=== PATIENT | female | born 1985 | race Two or more races ===

== ENCOUNTER → 2025-02-21 | Outpatient (CLI) | payer MEDICAID, SELFPAY ==
--- NOTE | 2025-02-21 13:00 | XR_ITS ---
Examination: MRI lumbar spine without contrast Date and time of exam: February 21, 2025 1402 hours INDICATIONS: Low back pain with paresthesias 1 month after falling with injury to lower back Technique: Multiple MRI axial and sagittal sections lumbar spine. Sagittal T2-weighted images, TR 3500, TE 118 T1 weighted transverse sections, TR 688 T8.5, T2-weighted sagittal sections T1 weighted sagittal sections TR 621, TE 30 T2 axial sections, TR 4, 190, TE 84. Findings: Adequate alignment lumbar vertebral bodies on the lateral view No lumbar fracture Disc desiccation L5-S1 Mild disc narrowing L5-S1 No spondylolisthesis L5-S1 7 mm central lumbar disc bulge contiguous with the right and left S1 nerve roots L4-L5 2 mm central lumbar disc bulge More cephalad levels unremarkable IMPRESSION: No lumbar fracture L5-S1 7 mm central lumbar disc bulge contiguous with the right and left S1 nerve roots
== END | disposition home or self-care (01) ==
PROVIDERS: PCP Specialist; Referring Provider Specialist; Visit Provider Specialist
DX: M51.370 Other intervertebral disc degeneration, lumbosacral region with discogenic back pain only (principal); S39.92XA Unspecified injury of lower back, initial encounter; W19.XXXA Unspecified fall, initial encounter
CPT/HCPCS: 72148

== ENCOUNTER 2025-04-08 11:30 | Outpatient (RCR) | payer MEDICAID, SELFPAY ==
--- NOTE | 2025-03-25 18:30 | PTNOTE_ITS ---
PT OP Initial Eval Patient Information Outpatient Physical Therapy Treatment Date: 03/25/25 Visit Reasons: scoliosis Medical Diagnosis: M41.80 Treatment Dx #1: back pain Treatment Dx #2: LBP Start of Care: 03/25/25 Smoking Status Smoking Status: Never smoker Initial Assessment Subjective: Pt is 39 yr old female who reports LBP since slipping on water and falling onto her backside on the floor at [employer]. Since then she has more pain with bending, lifting and prolonged sitting. She points to the lumbar spine as site of most pain and occasionally the mid back. PMH: x2 Imaging: MRI of L/S L5-S1 7 mm central lumbar disc bulge contiguous with the right and left S1 nerve roots, L4-L5 2 mm central lumbar disc bulge Pt goal: to get rid of the pain and improve quality of life Objective: ?Trunk ArOM: ? B SB 50% of normal ? Extension: 30% with pain around L4-5, L5-S1 ? Flexion: 14 from floor with LBP ? B rotation: 70% ? TTP: moderate paraspinals L4-S1 ? Neuro: B SLR: negative Observation: unable to notice scoliotic curve Assessment: Pt presents with trunk flexion sensitivity and overlying myofascial pain ? and TTP around L4-S1 consistent with MRI results that reveal lower lumbar disc bulge(s) with radiculopathy. Pt requires skilled therapy in order to decrease ? pain and improve sitting/standing tolerance and has fair rehab potential. Eval ?followed by HEP printout. The mid-back pain wasn't provoked today during the eval. Short Term and Group Home Goals 1. Ind with HEP ? 2. Improved sitting/standing tolerance to 3 hours with <=4/10 LBP ? 3. Decreased lower paraspinal TTP from mod to min 4. Improved HH chore tolerance to at least 60 minutes with <=3/10 LBP and no ?increase in LE ssx Treatment Plan 1. Manual therapy ? 2. Therex ? 3. Modalities as indicated, moist heat, ice, estim, mechanical traction Frequency and Duration: 2x a week for 12 visits plus the evaluation. We will need provider's signature on this evaluation to continue past 6 Rx sessions or another referral since provider requested 6. Certification Dates: 03/25/25 to 06/23/25 Procedure Charges OP PT Eval Mod Complex 30 minutes: Yes
--- NOTE | 2025-03-31 11:26 | PT.ODAYNRPT ---
PT Outpatient Daily Note OP Daily Note Outpatient Physical Therapy Treatment Date: 03/31/25 Visit Reasons: scoliosis Subjective: Same as time of eval. Doing HEP of prone extension with low pressure increase and slight pain in R glute Objective: See F/S for therex Mechanical traction L/S x7' at 40 lbs Assessment: Good demo of prone extension therex Plan: Continue per POC once we receive more authorized visits with the correct [id number] therex code Length of Time (minutes) of Treatment: 30 Minutes Procedure Charges Therapeutic Exercise 30 minutes: Yes
--- NOTE | 2025-04-03 18:03 | PT.ODAYNRPT ---
PT Outpatient Daily Note OP Daily Note Outpatient Physical Therapy Treatment Date: 04/03/25 Visit Reasons: scoliosis Subjective: Doing HEP of prone extension with low pressure increase and slight pain in R glute Objective: See F/S for therex Mechanical traction L/S x7' at 40 lbs Assessment: Good demo of prone extension therex Plan: Continue per POC Procedure Charges Therapeutic Exercise 30 minutes: Yes
--- NOTE | 2025-04-08 13:53 | PT.ODAYNRPT ---
PT Outpatient Daily Note OP Daily Note Outpatient Physical Therapy Treatment Date: 04/08/25 Visit Reasons: scoliosis Subjective: Doing HEP of prone extension with low pressure increase and slight pain in R glute. No LBP today. Objective: See F/S for therex Mechanical traction L/S x7' at 40 lbs Assessment: Good demo of prone extension therex and core activation therex with no LBP Plan: Continue per POC Procedure Charges Therapeutic Exercise 30 minutes: Yes
== END 2025-04-19 23:59 | disposition home or self-care (01) ==
LOC: CPTX 11:30
PROVIDERS: PCP Specialist; Referring Provider Specialist; Visit Provider Specialist
DX: M54.50 Low back pain, unspecified (principal); M41.80 Other forms of scoliosis, site unspecified
CPT/HCPCS: 97110; 97162

== ENCOUNTER 2025-05-14 15:00 | Outpatient (RCR) | payer MEDICAID, SELFPAY ==
--- NOTE | 2025-04-21 18:16 | PT.ODAYNRPT ---
PT Outpatient Daily Note OP Daily Note Outpatient Physical Therapy Treatment Date: 04/21/25 Visit Reasons: Scoliosis Subjective: Doing HEP of prone extension with low pressure increase and slight pain in R glute. Objective: See F/S for therex Mechanical traction L/S x7' at 40 lbs Assessment: Good demo of prone extension therex and core activation therex with no LBP Plan: Continue per POC Length of Time (minutes) of Treatment: 30 Minutes Procedure Charges Therapeutic Exercise 30 minutes: Yes
--- NOTE | 2025-04-28 16:39 | PT.ODAYNRPT ---
PT Outpatient Daily Note OP Daily Note Outpatient Physical Therapy Treatment Date: 04/28/25 Visit Reasons: Scoliosis Subjective: Doing HEP of prone extension with low pressure increase and slight pain in R glute. Objective: See F/S for therex Mechanical traction L/S x7' at 40 lbs Assessment: Good demo of prone extension therex and core activation therex with no LBP Plan: Continue per POC Length of Time (minutes) of Treatment: 30 Minutes Procedure Charges Therapeutic Exercise 30 minutes: Yes
--- NOTE | 2025-05-02 16:13 | PT.ODAYNRPT ---
PT Outpatient Daily Note OP Daily Note Outpatient Physical Therapy Treatment Date: 05/02/25 Visit Reasons: Scoliosis Subjective: Pt reports back is doing better, she is doing HEP and working out at home. Objective: Please see flow sheet for ther ex list. Assessment: Pt demonstrates good abdominal recruitment with exercises assigned. Plan: Continue with POC. Length of Time (minutes) of Treatment: 30 Minutes Procedure Charges Therapeutic Exercise 30 minutes: Yes
--- NOTE | 2025-05-05 09:45 | PT.ODAYNRPT ---
PT Outpatient Daily Note OP Daily Note Outpatient Physical Therapy Treatment Date: 05/05/25 Visit Reasons: Scoliosis Subjective: Pt reports palacio has been feeling better these last few days. Objective: Please see flow sheet for ther ex list. Assessment: Pt instructed on planks off table height exercise, pt demonstrated good body mechanics maintaining spine in neutral. Plan: Continue with pOC. Length of Time (minutes) of Treatment: 30 Minutes Procedure Charges Therapeutic Exercise 30 minutes: Yes
--- NOTE | 2025-05-14 16:30 | PT.ODAYNRPT ---
PT Outpatient Daily Note OP Daily Note Outpatient Physical Therapy Treatment Date: 05/14/25 Visit Reasons: Scoliosis Subjective: Doing HEP of prone extension with low pressure increase and slight pain in R glute. Objective: See F/S for therex Mechanical traction L/S x7' at 40 lbs Assessment: Good demo of prone extension therex and core activation therex with no LBP Plan: Continue per POC Length of Time (minutes) of Treatment: 30 Minutes Procedure Charges Therapeutic Exercise 30 minutes: Yes
== END 2025-05-19 23:59 | disposition home or self-care (01) ==
LOC: CPTX 15:00
PROVIDERS: PCP Specialist; Referring Provider Specialist; Visit Provider Specialist
DX: M54.50 Low back pain, unspecified (principal); M41.80 Other forms of scoliosis, site unspecified
CPT/HCPCS: 97110

== ENCOUNTER 2025-06-10 11:30 | Outpatient (RCR) | payer MEDICAID, SELFPAY ==
--- NOTE | 2025-05-20 17:24 | PT.ODAYNRPT ---
PT Outpatient Daily Note OP Daily Note Outpatient Physical Therapy Treatment Date: 05/20/25 Visit Reasons: Scoliosis Subjective: Doing HEP of prone extension with low pressure increase and slight pain in R glute. Objective: See F/S for therex Mechanical traction L/S x7' at 40 lbs Assessment: Good demo of prone extension therex and core activation therex with no LBP Plan: Continue per POC Length of Time (minutes) of Treatment: 30 Minutes Procedure Charges Therapeutic Exercise 30 minutes: Yes
--- NOTE | 2025-05-28 16:53 | PT.ODAYNRPT ---
PT Outpatient Daily Note OP Daily Note Outpatient Physical Therapy Treatment Date: 05/28/25 Visit Reasons: Scoliosis Subjective: Doing HEP of prone extension with low pressure increase and slight pain in R glute. Objective: See F/S for therex Mechanical traction L/S x7' at 40 lbs Assessment: Good demo of prone extension therex and core activation therex with no LBP Plan: Continue per POC Length of Time (minutes) of Treatment: 30 Minutes Procedure Charges Therapeutic Exercise 30 minutes: Yes
--- NOTE | 2025-06-05 13:07 | PT.ODAYNRPT ---
PT Outpatient Daily Note OP Daily Note Outpatient Physical Therapy Treatment Date: 06/05/25 Visit Reasons: Scoliosis Subjective: Less LBP lately. She is watching her posture to avoid slouching and rounding her back Objective: See F/S for therex Assessment: Good abdominal activation with lumbar stabilization therex Plan: Continue per POC Length of Time (minutes) of Treatment: 30 Minutes Procedure Charges Therapeutic Exercise 30 minutes: Yes
--- NOTE | 2025-06-10 13:45 | PT.ODAYNRPT ---
PT Outpatient Daily Note OP Daily Note Outpatient Physical Therapy Treatment Date: 06/10/25 Visit Reasons: Scoliosis Subjective: Less LBP lately. She is watching her posture to avoid slouching and rounding her back Objective: See F/S for therex Assessment: Good abdominal activation with lumbar stabilization therex Plan: Continue per POC Length of Time (minutes) of Treatment: 30 Minutes Procedure Charges Therapeutic Exercise 30 minutes: Yes
== END 2025-06-19 23:59 | disposition home or self-care (01) ==
LOC: CPTX 11:30
PROVIDERS: PCP Specialist; Referring Provider Specialist; Visit Provider Specialist
DX: M54.50 Low back pain, unspecified (principal); M41.80 Other forms of scoliosis, site unspecified
CPT/HCPCS: 97110

== ENCOUNTER 2025-06-24 11:18 | Outpatient (RCR) | payer MEDICAID, SELFPAY ==
--- NOTE | 2025-06-24 12:52 | PT.ODS1RPT ---
PT OP Progress/Discharge Note Date of Service: 06/24/25 Progress Note/DC Note Progress Note/Discharge Note: DC Note Patient Information Visit Reasons: Scoliosis Service Continue Service or Discharge: Discharge Discharge Date: 06/24/25 Status Subjective: Overall less LBP, improved standing >3 hrs and sitting 2 hr tolerances Objective: Trunk AROM: FB: 12 from floor Extension: full TTP: min of lumbar paraspinals. Assessment: Pt has attended 10/31 visits with good progress with goals. Pt is independent with HEP which is helping manage the LBP to meet that goal. Pt has improved standing tolerance to meet that goal. Pt has decreased lower paraspinal TTP from mod to min. Plan: D/C with HEP Procedure Charges Therapeutic Exercise 30 minutes: Yes
== END 2025-07-20 23:59 | disposition home or self-care (01) ==
LOC: CPTX 11:18
PROVIDERS: PCP Specialist; Referring Provider Specialist; Visit Provider Specialist
DX: M54.50 Low back pain, unspecified (principal); M41.80 Other forms of scoliosis, site unspecified; S39.92XD Unspecified injury of lower back, subsequent encounter; W01.0XXD Fall on same level from slipping, tripping and stumbling without subsequent striking against object, subsequent encounter
CPT/HCPCS: 97110

== ENCOUNTER → 2025-09-19 | Outpatient (CLI) | payer MEDICAID, SELFPAY ==
--- NOTE | 2025-09-19 08:30 | XR_ITS ---
Examination: Screening digital mammography, bilateral Computer aided detection 3-D breast Tomosynthesis, bilateral Date and time of exam: September 19, 2025, 0909 hours, comparison November 16, 2023 Indication: Screening Technique: Nonmagnified MLO, CC views of the breasts to been obtained, reconstructed from 3-D Tomosynthesis images. R2 computer aided detection program utilized for evaluation of suspicious masses and/or abnormal calcifications. 3-D Tomosynthesis images obtained. Findings: The breast is heterogeneously dense, which may obscure small masses 19 mm nodule 12 o'clock position right breast fairly circumscribed Impression: BI-RADS Category 0: Incomplete: Need additional imaging evaluation Recommend follow-up spot tomographic views of 19 mm nodule 12 o'clock position right breast as well as bilateral breast sonography to complete the work-up
== END | disposition home or self-care (01) ==
LOC: CDIM 08:47
PROVIDERS: PCP Specialist; Referring Provider Physician Assistant Medical; Visit Provider Physician Assistant Medical
DX: Z12.31 Encounter for screening mammogram for malignant neoplasm of breast (principal); R92.8 Other abnormal and inconclusive findings on diagnostic imaging of breast; N63.15 Unspecified lump in the right breast, overlapping quadrants
CPT/HCPCS: 77063; 77067

== ENCOUNTER → 2025-10-03 | Outpatient (CLI) | payer MEDICAID, SELFPAY ==
--- NOTE | 2025-10-03 13:51 | XR_ITS ---
Examination: Diagnostic digital mammography, unilateral, right Computer aided detection 3-D breast Tomosynthesis, unilateral Date and time of exam: October 03, 2025, 1427 hours INDICATIONS: 19 mm nodule 12 o'clock position right breast on mammogram September 19, 2025 Technique: Nonmagnified MLO, CC views of the right breast have been obtained, reconstructed from 3-D Tomosynthesis images. R2 computer aided detection program utilized for evaluation of suspicious masses and/or abnormal calcifications. 3-D Tomosynthesis images obtained. Findings: The breast is heterogeneously dense, which may obscure small masses 12:00 nodule is confirmed on the spot compression views, please see the ultrasound report today indicating 12:00 nodule right breast suspicious margins Impression: BI-RADS category 4: Suspicious for malignancy Suspicious nodule 12 o'clock position right breast, best depicted on the ultrasound examination today, biopsy is needed to exclude breast carcinoma the mass is amenable to ultrasound-guided breast biopsy for diagnosis
--- NOTE | 2025-10-03 13:51 | XR_ITS ---
Examination: Breast ultrasound complete, bilateral Date and time of exam: October 03, 2025, 1409 hours INDICATIONS: Mammogram September 19, 2000 2519 mm nodule 12 o'clock position right breast Technique: Real-time grayscale ultrasonographic imaging bilateral breasts, including all 4 quadrants as well as nipple retroareolar and axillary regions. Findings: Sonographic images right breast 12:00 nodule partially indistinct 16 x 17 mm 1:00 cyst 8 x 7 mm 10:00 nodule lobular margins 7 x 7 mm Sonographic images left breast 3:00 nodule circumscribed 4 x 5 mm 6:00 cyst 6 x 5 mm 10:00 cyst 6 x 5 mm IMPRESSION: BI-RADS Category 4: Suspicious for malignancy Suspicious mass 12 o'clock position right breast, biopsy is needed to exclude breast carcinoma, this mass is amenable to ultrasound-guided breast biopsy for diagnosis
== END | disposition home or self-care (01) ==
PROVIDERS: PCP Specialist; Referring Provider Specialist; Visit Provider Specialist
DX: R92.341 Mammographic extreme density, right breast (principal); N63.15 Unspecified lump in the right breast, overlapping quadrants; R92.0 Mammographic microcalcification found on diagnostic imaging of breast
CPT/HCPCS: 76641; 77061; 77065; G0279

== ENCOUNTER → 2025-11-10 | Outpatient (CLI) | payer MEDICAID, SELFPAY ==
[2025-11-07 10:10] LABS: Basophils # (Auto) 0.0 Thou/mm3 (0.0-0.2); Basophils % (Auto) 0 % (0-2.5); Eosinophils # (Auto) 0.0 Thou/mm3 (0.0-0.5); Eosinophils % (Auto) 1 % (0-10); Hematocrit 37.8 % (36.0-46.0); Hemoglobin 13.1 g/dL (12.0-16.0); Immature Granulocytes Auto 0.01 Thou/mm3 (0.00-0.00); Lymphocytes # (Auto) 1.8 Thou/mm3 (1.0-4.8); Lymphocytes % (Auto) 40 % (10-50); Mean Corpuscular HGB Conc 34.7 g/dl (31.0-37.0); Mean Corpuscular Hemoglobin 29.9 pg (25.0-35.0); Mean Corpuscular Volume 86 fL (80-100); Monocytes # (Auto) 0.3 Thou/mm3 (0.0-0.8); Monocytes % (Auto) 7 % (0-12); Neutrophils # (Auto) 2.4 Thou/mm3 (1.8-7.7); Neutrophils % (Auto) 51 % (37-80); Nucleated Red Blood Cell # 0.00 Thou/mm3 (0.00-0.00); Nucleated Red Blood Cell % 0 /100 WBC (0); Platelet Count 240 Thou/mm3 (140-440); RDW Standard Deviation 37.5 fL (36.4-46.3); Red Blood Count 4.38 Miln/mm3 (4.00-5.20); White Blood Count 4.6 Thou/mm3 (3.6-11.0)
[2025-11-07 10:17] LABS: INR 1.0 (0.9-1.3); Partial Thromboplastin Time 24.4 Seconds (22.0-36.0); Prothrombin Time 10.9 Seconds (9.0-12.2)
[2025-11-07 10:19] LABS: HCG,Qualitative Serum Negative
--- NOTE | 2025-11-10 08:30 | XR_ITS ---
Examinations: Ultrasound-guided percutaneous breast biopsy, right breast 12:00 nodule Right breast sonography limited INDICATIONS: BI-RADS 4 suspicious nodule 12 o'clock position right breast on right breast sonogram October 03, 2025. Exam date and time: November 10, 2025, 0926 hours. Informed consent provided. Technique: A timeout was completed verifying correct patient, procedure, site, positioning, and special equipment if applicable Informed consent provided. The patient was placed in a supine position for the breast biopsy. Sonographic images of the breast were performed for localization of the suspicious nodule The patient's breast was prepped and draped in sterile fashion. Maximum sterile barrier technique, hand hygiene, ultrasound sterile technique 1% lidocaine was used to anesthetize the skin and breast adjacent to the suspicious nodule. Utilizing ultrasonographic guidance, 8 core biopsies were obtained of the suspicious nodule utilizing an 18-gauge BioPince needle. The specimens appears satisfactory. US guided breast biopsy marker placement. Estimated blood loss 3 cc. The patient tolerated the procedure well and there were no complications. Impression: Successful ultrasound-guided percutaneous breast biopsy, right breast 12:00 nodule. Ultrasound guided breast biopsy marker placement.
== END | disposition home or self-care (01) ==
LOC: SIRX 08:36
PROVIDERS: Radiology Diagnostic Radiology; PCP Specialist; Referring Provider Specialist; Visit Provider Specialist
DX: N63.12 Unspecified lump in the right breast, upper inner quadrant (principal); R92.8 Other abnormal and inconclusive findings on diagnostic imaging of breast
CPT/HCPCS: 19083; 36415; 84703; 85025; 85610; 85730; A4648